=== PATIENT | male | born 1990 | race Caucasian/White ===

== ENCOUNTER 2019-10-08 13:36 | Emergency (ER) | payer OTHER ==
[~2019-10-08] VITALS: Ht 180.3 cm; Wt 131.5 kg
[2019-10-08 14:35] VITALS: BP 177/67
== END 2019-10-08 15:51 | disposition left against medical advice (07) ==
LOC: ER 13:36
DX: R20.0 Anesthesia of skin (principal); M79.602 Pain in left arm; Z53.21 Procedure and treatment not carried out due to patient leaving prior to being seen by health care provider